=== PATIENT | male | born 1990 ===

== ENCOUNTER 2017-08-25 17:16 | Emergency (ER) | payer SELFPAY ==
--- NOTE | 2017-08-25 18:05 | UC ---
Hand/Wrist HPI - HPI Summary HPI Summary: 27 y/o male presents to the urgent care c/o left hand pain s/p falling over his hand 2 days ago. Pt reports he noticed this morning both side of his hands w/ bruising. After injury he applied ice, but has not taking anything to alleviate symptoms. He also has an abrasion on the dorsal side of hand that is mildly swollen, but it is healing. Pt states pain is 4/10 at touch and he hand move all fingers and hand w/o any difficulty. Pt denies fever, numbness or tingling sensation over the fingers, SOB, chest pain, abdominal pain, N/V/D. - History Of Current Complaint Chief Complaint: UCUpperExtremity Stated Complaint: HAND INJURY Time Seen by Provider: 08/25/17 17:59 Hx Obtained From: Patient Onset/Duration: Sudden Onset, Lasting Days - 2 days, Still Present, Worse Since - today Severity Initially: Moderate Severity Currently: Mild Pain Intensity: 4 Pain Scale Used: 0-10 Numeric Aggravating Factor(s): Movement, Other - touch Alleviating Factor(s): Rest, Ice Associated Signs And Symptoms: Positive: Swelling, Bruising. Negative: Redness , Fever, Weakness, Numbness/Tingling Related History: Dominant Hand Right - Allergies/Home Medications Allergies/Adverse Reactions: Allergies Allergy/AdvReac Type Severity Reaction Status Date / Time No Known Allergies Allergy Verified 08/25/17 17:46 PMH/Surg Hx/FS Hx/Imm Hx Previously Healthy: Yes - Pt denies PMHX - Surgical History Surgical History: Yes Surgery Procedure, Year, and Place: appy in elementary school - Family History Known Family History: Positive: Hypertension - Social History Occupation: Employed Full-time Lives: With Family Alcohol Use: Weekly Substance Use Type: None Smoking Status (MU): Never Smoked Tobacco Review of Systems Constitutional: Negative Skin: Bruising - left hand brusing, swellling and abrasion s/p fall Eyes: Negative ENT: Negative Respiratory: Negative Cardiovascular: Negative Gastrointestinal: Negative Genitourinary: Negative Motor: Negative Neurovascular: Negative Musculoskeletal: Other: - left hand pain s/p fall Neurological: Negative Psychological: Negative Is Patient Immunocompromised?: No All Other Systems Reviewed And Are Negative: Yes Physical Exam - Summary Physical Exam Summary: Vital Signs Reviewed: Yes General: Well-Appearing, No Pain Distress, Well-Nourished male w/o any apparent distress Eyes: Positive: Conjunctiva Clear - PERRLA, EOMI ENT: Positive: Normal ENT inspection, Hearing grossly normal, Pharynx normal, TMs normal, Uvula midline Neck: Positive: Supple, Nontender, No Lymphadenopathy Respiratory: Positive: Chest non-tender, Lungs clear, Normal breath sounds, No respiratory distress Cardiovascular: Positive: RRR, No Murmur, Pulses Normal, Brisk Capillary Refill Abdomen Description: Positive: Nontender, No Organomegaly, Soft. Negative: CVA Tenderness (R), CVA Tenderness (L) Bowel Sounds: Positive: Present Musculoskeletal: Positive: Strength Intact, Other: Neurological Exam: Normal Musculoskeletal: Positive: the L hand is without obvious asymmetry or deformity when compared to the R hand. small abrasion on dorsal side on hand about 2/.0x1/0cm n size, tender to palpation, mildly swollen, healing, bruising and ecchymosis on both sides of hand covering entire hand. No overlying erythema or warmth. No bony crepitus. Point tenderness over the thenar eminence and ventral side of palm. No scaphoid fullness or tenderness to direct palpation or axial load. FROM of left hand and all cascade of fingers. Motor/sensory function of ulnar, radial, median nerves intact. Ulnar and radial pulses intact. Psychological Exam: Normal Skin Exam: Normal Triage Information Reviewed: Yes Vital Signs: Initial Vital Signs Temp 99.7 F 08/25/17 17:38 Pulse 93 08/25/17 17:38 Resp 16 08/25/17 17:38 BP 147/97 08/25/17 17:38 Pulse Ox 100 08/25/17 17:38 Hand/Wrist Course/Dx - Course Course Of Treatment: 27 y/o male presents to the urgent care c/o left hand pain s/p falling over his hand 2 days ago. Pt reports he noticed this morning both side of his hands w/ bruising. After injury he applied ice, but has not taking anything to alleviate symptoms. He also has an abrasion on the dorsal side of hand that is mildly swollen, but it is healing. Pt states pain is 4/10 at touch and he hand move all fingers and hand w/o any difficulty. Pt denies fever, numbness or tingling sensation over the fingers, SOB, chest pain, abdominal pain , N/V/D.hx obtained. LF wrist X-ray ordered. Impression: There was no fracture, dislocation, soft tissue swelling or FB noted. Pt w/ a hematoma on both sides of hand and dorsal abrasion on examination. Bacitracin oint applied over wound and covered w/ sterile gauze. Pt Rx Ibuprofen PO for pain and Bacitracin Oint. Advised RICE: Rest, Ice, elevation, NSAIDs, analgesia. Pt advised if not improvement of symptoms to return to the urgent care or PCP for further management. Pt's BP is elevated today advised to decrease salt in diet, monitor BP and f/u with PCP for further management. Pt undestood and agreed w/ plan of care. - Differential Dx/Diagnosis Differential Diagnosis/HQI/PQRI: Cellulitis, Contusion, Fracture, Infection, Sprain, Strain, Tendonitis Provider Diagnoses: 1- left hand hematoma s/p fall. 2- left hand abrasion. 3- Elevated BP w/o Hx of HTN Discharge - Sign-Out/Discharge Documenting (check all that apply): Discharge/Admit/Transfer - D/C home - Discharge Plan Condition: Stable Disposition: HOME Prescriptions: Bacitracin OINTMENT* 1 applic TOPICAL BID #1 tube Ibuprofen TAB* [Motrin TAB* 600 MG] 600 mg PO Q6H PRN #20 tab PRN Reason: Pain Patient Education Materials: Abrasion (ED), Low-Sodium Diet (ED), Hematoma (ED) Referrals: [facility] [Outside] - 3 Days Additional Instructions: 1-Please take Ibuprofen PO q6-8hrs prn after meals to alleviate pain and swelling. 2-Please keep wound dry and clean apply ice, keep your thumb immobilized with the splint. 3- If you develop any signs on infection please return to the urgent care or your PCP for further management 4-Your BP is elevated today. please decrease salt in your diet, monitor BP and if it continues to be elevated please f/u with your PCP for further management - Billing Disposition and Condition Condition: STABLE Disposition: Home
--- NOTE | 2017-08-25 18:16 | RAD ---
Indication: Left hand pain after fall. 2 views of the left hand demonstrates no fracture. No other bone or joint abnormality is noted. IMPRESSION: No fracture of the left hand is noted.
== END 2017-08-25 19:02 | disposition home or self-care (01) ==
LOC: UCEAST 17:16
DX: S60.222A Contusion of left hand, initial encounter (principal); S60.512A Abrasion of left hand, initial encounter; W19.XXXA Unspecified fall, initial encounter; Y92.9 Unspecified place or not applicable
CPT/HCPCS: 99202; G0463